=== PATIENT | female | born 1965 | race Caucasian/White ===

== ENCOUNTER 2016-12-12 21:29 | Emergency (ER) | payer OTHER ==
[~2016-12-12] VITALS: Ht 165.1 cm; Wt 68.2 kg
[~2016-12-12 21:29] MED LIST: FLEXERIL 1010 MG/TAB PO; MACROBID 1100 MG/CAP PO; NO HOME MEDICATIONS; NORCO 325 MG-51 TAB PO; PYRIDIUM200 M1 PO
[2016-12-12 21:30] VITALS: BP 135/67
[2016-12-12 22:02] LABS: BASO # 0.1 (0.0-0.2); BASO % 1.1 % (0.0-2.0); EOS # 0.2 (0.0-0.7); EOS % 1.7 % (0-4.0); GRAN # 7.8 (1.4-6.5); GRAN % 62.8 % (42.2-75.2); HEMATOCRIT 42.8 % (37.0-47.0); HEMOGLOBIN 14.2 g/dl (12.5-16.0); LYMPH # 3.3 (1.2-3.4); LYMPH % 26.3 % (20.0-51.0); MEAN CELL VOLUME 93 fl (80.0-100.0); MEAN CORPUSCULAR HEMOGLOBIN 31 pg (27.0-31.0); MEAN CORPUSCULAR HGB CONC 33 g/dl (33.0-37.0); MEAN PLATELET VOLUME 9.7 fl (7.4-10.4); MONO # 0.9 (0.1-0.6); MONO % 7.4 % (1.7-9.3); PLATELET COUNT 404 K/mm3 (130-400); RED BLOOD COUNT 4.58 M/mm3 (4.10-5.30); WHITE BLOOD COUNT 12.4 K/mm3 (4.8-10.8)
[2016-12-12 22:11] LABS: ADJUSTED CALCIUM 8.9 mg/dL (8.4-10.2); ALBUMIN 4.3 gm/dL (3.5-5.0); BILIRUBIN,TOTAL 0.4 mg/dL (0.0-1.0); CALCIUM 9.1 mg/dL (8.4-10.2); CREATININE, serum 0.7 mg/dL (0.52-1.25); POTASSIUM 3.5 mmol/L (3.4-5.0); TOTAL PROTEIN 7.3 gm/dL (6.4-8.2)
[2016-12-12 22:44] LABS: COLLECTION METHOD CLEAN CATCH
[2016-12-12] MEDS ORDERED: CIPRO 500MG TA500 MG PO (22:46)
[2016-12-12] MEDS ORDERED: FLAGYL500 MG PO (22:46)
[2016-12-12] MEDS ORDERED: NORCO 325 MG-51 TAB PO (22:46)
[2016-12-12 22:49] LABS: PH 6 (5-8); SQUAMOUS EPITHELIAL 0-2 /hpf; URINE APPEARANCE Clear; URINE BACTERIA None Seen /hpf; URINE BILIRUBIN Negative (NEGATIVE); URINE BLOOD 1+ (NEGATIVE); URINE COLOR Straw; URINE GLUCOSE Negative (NEGATIVE); URINE KETONE Negative (NEGATIVE); URINE LEUKOCYTE ESTERASE Negative (NEGATIVE); URINE PROTEIN(semi-quant) Negative (NEGATIVE); URINE RBC 0-2 /hpf; URINE UROBILINOGEN Negative (NEGATIVE); URINE WBC 0-2 /hpf
[2016-12-12 23:11] VITALS: PULSE 65; TEMP 98.3
== END 2016-12-12 23:10 | disposition home or self-care (01) ==
LOC: COL.ER 21:29
PROVIDERS: Emergency Medicine
DX: K57.92 Diverticulitis of intestine, part unspecified, without perforation or abscess without bleeding (principal); Z90.49 Acquired absence of other specified parts of digestive tract; Z90.710 Acquired absence of both cervix and uterus; Z87.11 Personal history of peptic ulcer disease
CPT/HCPCS: J2270; J7030; Q9967

== ENCOUNTER → 2019-02-15 | Outpatient (CLI) | payer OTHER ==
[~2019-02-15] MED LIST changes: +CIPRO 500MG TA500 MG PO; +FLAGYL500 MG PO
== END ==
LOC: MC.RAD 16:20
DX: Z12.31 Encounter for screening mammogram for malignant neoplasm of breast (principal); N64.89 Other specified disorders of breast

== ENCOUNTER → 2019-02-20 | Outpatient (CLI) | payer OTHER | LOC: MC.RAD 08:57 | DX: N60.01 Solitary cyst of right breast (principal) | CPT/HCPCS: G0279 ==

== ENCOUNTER → 2019-08-27 | Outpatient (CLI) | payer OTHER | LOC: MC.RAD 12:57 | DX: N63.12 Unspecified lump in the right breast, upper inner quadrant (principal) ==

== ENCOUNTER 2020-07-02 18:12 | Emergency (ER) | payer OTHER ==
[~2020-07-02] VITALS: Ht 165.1 cm; Wt 70.5 kg
[2020-07-02 18:19] VITALS: TEMP 98.1
[2020-07-02 20:07] LABS: BASO # 0.1 (0.0-0.2); BASO % 0.8 % (0.0-2.0); EOS # 0.2 (0.0-0.7); EOS % 2.1 % (0-4.0); GRAN # 5.7 (1.4-6.5); GRAN % 67.6 % (42.2-75.2); HEMATOCRIT 41.5 % (37.0-47.0); HEMOGLOBIN 13.6 g/dl (12.5-16.0); LYMPH # 1.9 (1.2-3.4); LYMPH % 21.8 % (20.0-51.0); MEAN CELL VOLUME 92 fl (80.0-100.0); MEAN CORPUSCULAR HEMOGLOBIN 30 pg (27.0-31.0); MEAN CORPUSCULAR HGB CONC 33 g/dl (33.0-37.0); MEAN PLATELET VOLUME 11.7 fl (7.4-10.4); MONO # 0.6 (0.1-0.6); MONO % 7.3 % (1.7-9.3); PLATELET COUNT 134 K/mm3 (130-400); RED BLOOD COUNT 4.52 M/mm3 (4.10-5.30); REDCELL DISTRIBUTION WIDTH-CV 12.7 % (11.5-14.5)
[2020-07-02 20:09] LABS: ALANINE AMINOTRANSFERASE 59 U/L (4-34); ALBUMIN 4.4 gm/dL (3.5-5.0); ALKALINE PHOSPHATASE 82 U/L (50-136); ANION GAP 6 mmol/L (7-16); AST,SGOT 43 U/L (15-37); BILIRUBIN,TOTAL < 0.1 mg/dL (0.0-1.0); BLOOD UREA NITROGEN 6 mg/dL (7-17); CARBON DIOXIDE 31 mmol/L (22-30); CHLORIDE 104 mmol/L (98-107); CREATININE, serum 0.59 (0.52-1.25); GLUCOSE 100 mg/dL (74-106); LIPASE 121 U/L (23-300); POTASSIUM 3.8 mmol/L (3.4-5.0); SODIUM 141 mmol/L (137-145); TOTAL PROTEIN 7.6 gm/dL (6.4-8.2)
[2020-07-02 20:50] VITALS: BP 129/79; PULSE 78
== END 2020-07-02 20:40 | disposition home or self-care (01) ==
LOC: COL.ER 18:12
PROVIDERS: Emergency Medicine
DX: S27.818A Other injury of esophagus (thoracic part), initial encounter (principal); E11.9 Type 2 diabetes mellitus without complications; Z88.6 Allergy status to analgesic agent; X58.XXXA Exposure to other specified factors, initial encounter
CPT/HCPCS: C9113; J7030

== ENCOUNTER 2020-07-02 23:00 | Emergency (ER) | payer OTHER ==
[~2020-07-02] VITALS: Ht 165.1 cm; Wt 70.5 kg
[2020-07-02 23:50] VITALS: BP 124/70; PULSE 67; TEMP 98.4
== END 2020-07-02 23:50 | disposition home or self-care (01) ==
LOC: COL.ER 23:00
DX: S05.02XA Injury of conjunctiva and corneal abrasion without foreign body, left eye, initial encounter (principal); H11.32 Conjunctival hemorrhage, left eye; E11.9 Type 2 diabetes mellitus without complications; Z88.6 Allergy status to analgesic agent; X58.XXXA Exposure to other specified factors, initial encounter

== ENCOUNTER 2020-12-27 21:47 | Emergency (ER) | payer OTHER ==
[2020-12-27 22:08] VITALS: TEMP 98.3
[2020-12-27] MEDS ORDERED: ESTRACE0.5 MG PO (22:10)
[2020-12-27] MEDS ORDERED: RYBELSUS7 MG PO (22:10)
[2020-12-27] MEDS ORDERED: ZOCOR 40MG40 MG PO (22:10)
[2020-12-27] MEDS ORDERED: PRINIVIL2.5 MG PO (22:10)
[2020-12-27] MEDS ORDERED: ATARAX 25MG25 MG/TAB PO (22:11)
[2020-12-27] MEDS ORDERED: MOBIC15 MG PO (22:11)
[2020-12-27] MEDS ORDERED: LEXAPRO20 MG PO (22:11)
[2020-12-28 01:16] LABS: ALBUMIN 3.9 gm/dL (3.5-5.0); BILIRUBIN,TOTAL 0.3 mg/dL (0.2-1.2); C-REACTIVE PROTEIN 0.19 mg/dL (0.00-0.50); CALCIUM 9.3 mg/dL (8.4-10.2); CREATININE, serum 0.78 mg/dL (0.57-1.11); POTASSIUM 5.1 mmol/L (3.5-4.5); TOTAL PROTEIN 7.8 gm/dL (6.2-8.1)
[2020-12-28 01:42] LABS: COLLECTION METHOD CLEAN CATCH
[2020-12-28 01:46] LABS: BASO # 0.1 K/mm3 (0.0-0.2); BASO % 0.9 % (0.0-2.0); EOS # 0.2 K/mm3 (0.0-0.7); EOS % 2.8 % (0-4.0); GRAN # 4.6 K/mm3 (1.4-6.5); GRAN % 54.2 % (42.2-75.2); HEMATOCRIT 40.8 % (37.0-47.0); HEMOGLOBIN 13.4 g/dl (12.5-16.0); LYMPH # 2.9 K/mm3 (1.2-3.4); LYMPH % 33.5 % (20.0-51.0); MEAN CELL VOLUME 91 fl (80.0-100.0); MEAN CORPUSCULAR HEMOGLOBIN 30 pg (27.0-31.0); MEAN CORPUSCULAR HGB CONC 33 g/dl (33.0-37.0); MEAN PLATELET VOLUME 11.5 fl (7.4-10.4); MONO # 0.7 K/mm3 (0.1-0.6); PLATELET COUNT 220 K/mm3 (130-400); RED BLOOD COUNT 4.48 M/mm3 (4.10-5.30); REDCELL DISTRIBUTION WIDTH-CV 13.2 % (11.5-14.5)
[2020-12-28 01:49] LABS: MUCOUS Present /lpf; PH 6 (5-8); URINE APPEARANCE Clear; URINE BACTERIA Rare /hpf; URINE BILIRUBIN Negative (NEGATIVE); URINE BLOOD 1+ (NEGATIVE); URINE COLOR Yellow; URINE GLUCOSE Negative (NEGATIVE); URINE KETONE Negative (NEGATIVE); URINE LEUKOCYTE ESTERASE Negative (NEGATIVE); URINE NITRATE Negative (NEGATIVE); URINE PROTEIN(semi-quant) Negative (NEGATIVE); URINE UROBILINOGEN Negative (NEGATIVE)
[2020-12-28 02:58] VITALS: BP 144/84; PULSE 74
== END 2020-12-28 03:24 | disposition home or self-care (01) ==
LOC: COL.ER 21:47
PROVIDERS: Emergency Medicine
DX: R10.11 Right upper quadrant pain (principal); R94.5 Abnormal results of liver function studies; E11.9 Type 2 diabetes mellitus without complications; Z32.02 Encounter for pregnancy test, result negative; Z79.84 Long term (current) use of oral hypoglycemic drugs
CPT/HCPCS: J1885; J2405; J7030; Q9967

== ENCOUNTER → 2021-01-08 | Outpatient (CLI) | payer OTHER ==
[~2021-01-08] MED LIST changes: +ATARAX 25MG25 MG/TAB PO; +ESTRACE0.5 MG PO; +LEXAPRO20 MG PO; +MOBIC15 MG PO; +PRINIVIL2.5 MG PO; +RYBELSUS7 MG PO; +ZOCOR 40MG40 MG PO
== END ==
LOC: COL.RAD 06:56
DX: R10.11 Right upper quadrant pain (principal)

== ENCOUNTER → 2022-03-16 | Outpatient (CLI) | payer OTHER ==
[~2022-03-16] MED LIST changes: +MEDROL 4MG DOSPA4 MG PO
== END ==
LOC: MC.RAD 07:53
DX: N63.10 Unspecified lump in the right breast, unspecified quadrant (principal)

== ENCOUNTER 2022-12-11 19:58 | Emergency (ER) | payer OTHER ==
[~2022-12-11] VITALS: Ht 165.1 cm; Wt 70.5 kg
[2022-12-11] MEDS ORDERED: PERCOCET 325 MG1 TA2 PO (21:19)
[2022-12-11] MEDS ORDERED: FLEXERIL 1010 MG/TAB PO (21:19)
[2022-12-11 21:33] VITALS: BP 126/75; PULSE 69; TEMP 98.1
== END 2022-12-11 21:33 | disposition home or self-care (01) ==
LOC: COL.ER 19:58
DX: M54.6 Pain in thoracic spine (principal); Z28.310 Unvaccinated for COVID-19
CPT/HCPCS: J3010

== ENCOUNTER 2023-07-03 19:33 | Emergency (ER) | payer OTHER ==
[~2023-07-03] VITALS: Ht 165.1 cm; Wt 72.3 kg
[~2023-07-03 19:33] MED LIST changes: +PERCOCET 325 MG1 TA2 PO
[2023-07-03 19:45] VITALS: TEMP 98
[2023-07-03] MEDS ORDERED: traMADol 50 MG TAB PO ONE (20:00)
[2023-07-03] MEDS ORDERED: Ketorolac 30 MG/ML VIAL IM ONE (20:00)
[2023-07-03] MEDS ORDERED: Acetaminophen 500 MG TAB PO ONE (20:00)
[2023-07-03] MEDS ORDERED: tiZANidine 4 MG TAB PO ONE (20:00)
[2023-07-03] MEDS ORDERED: FLEXERIL 1010 MG/TAB PO (20:44)
[2023-07-03 21:03] VITALS: BP 123/78; PULSE 64
== END 2023-07-03 21:03 | disposition home or self-care (01) ==
LOC: COL.ER 19:33
DX: M62.838 Other muscle spasm (principal); Z88.6 Allergy status to analgesic agent
CPT/HCPCS: J1885

== ENCOUNTER 2023-10-14 09:22 | Emergency (ER) | payer OTHER ==
[~2023-10-14] VITALS: Ht 165.1 cm; Wt 71.8 kg
[2023-10-14 09:27] VITALS: TEMP 97.8
[2023-10-14 09:53] LABS: BASO # 0.1 K/mm3 (0.0-0.2); BASO % 1.1 % (0.0-2.0); EOS # 0.1 K/mm3 (0.0-0.7); EOS % 1.4 % (0.0-4.0); GRAN # 5.2 K/mm3 (1.4-6.5); GRAN % 70.6 % (42.2-75.2); HEMATOCRIT 43.4 % (37.0-47.0); HEMOGLOBIN 14.3 g/dl (12.5-16.0); LYMPH # 1.6 K/mm3 (1.2-3.4); LYMPH % 21.3 % (20.0-51.0); MEAN CELL VOLUME 95 fl (80.0-100.0); MEAN CORPUSCULAR HEMOGLOBIN 31 pg (27-31); MEAN CORPUSCULAR HGB CONC 33 g/dl (33.0-37.0); MEAN PLATELET VOLUME 9.8 fl (7.4-10.4); MONO # 0.4 K/mm3 (0.1-0.6); MONO % 4.9 % (1.7-9.3); PLATELET COUNT 379 K/mm3 (130-400); RED BLOOD COUNT 4.58 M/mm3 (4.10-5.30); REDCELL DISTRIBUTION WIDTH-CV 11.9 % (11.5-14.5)
[2023-10-14 10:12] LABS: ALANINE AMINOTRANSFERASE 83 U/L (0-55); ALBUMIN 3.9 g/dL (3.5-5.0); ALKALINE PHOSPHATASE 129 U/L (40-150); ANION GAP 9 mmol/L (7-16); AST,SGOT 28 U/L (5-34); BILIRUBIN,TOTAL 0.4 mg/dL (0.2-1.2); BLOOD UREA NITROGEN 13 mg/dL (10-20); CALCIUM 9.3 mg/dL (8.4-10.2); CHLORIDE 106 mEq/L (98-107); CREATININE, serum 0.81 mg/dL (0.57-1.11); GLUCOSE 206 mg/dL (70-99); POTASSIUM 3.6 mEq/L (3.5-4.5); SODIUM 140 mEq/L (136-145); TOTAL PROTEIN 7.3 g/dl (6.2-8.1)
[2023-10-14 10:30] LABS: TROPONIN-I < 0.010 ng/mL (0.00-0.033)
[2023-10-14] MEDS ORDERED: Acetaminophen 500 MG TAB PO ONE (12:00)
[2023-10-14 13:11] VITALS: BP 138/90; PULSE 64
== END 2023-10-14 13:15 | disposition home or self-care (01) ==
LOC: COL.ER 09:22
PROVIDERS: Emergency Medicine
DX: R07.89 Other chest pain (principal); R53.81 Other malaise